=== PATIENT | male | born 1985 ===

== ENCOUNTER 2017-12-12 12:30 | Emergency (ER) | payer SELFPAY ==
--- NOTE | 2017-12-12 14:23 | RAD REPORT ---
EXAM DESCRIPTION: Lumbar Spine 3 Views CLINICAL HISTORY: Radiculopathy COMPARISON: None. FINDINGS: Vertebral body heights appear maintained. No compression fracture noted. Disc spaces are m aintained. No spondylolysis or spondylolisthesis. Small endplate osteophytes along the lower lumbar l evels. IMPRESSION: Minimal lower lumbar spondylosis.
[2017-12-12 14:57] LABS: Potassium 3.9 mEq/L (3.6-5.0)
[2017-12-12 15:03] LABS: Albumin 4.6 g/dL (3.2-5.5); Bilirubin Direct 0.2 mg/dL (0-0.2); Bilirubin Total 1.3 mg/dL (0.3-1.2); Protein, Total 8.3 g/dL (6.0-8.3)
--- NOTE | 2017-12-12 15:25 | RAD REPORT ---
EXAM DESCRIPTION: CT - Abdomen Pelvis W Contrast - 12/12/2017 3:08 pm CLINICAL HISTORY: Abdominal pain with vomiting COMPARISON: none. TECHNIQUE: Computed axial tomography of the abdomen pelvis was obtained. 100 cc Isovue-300 was admin istered intravenously. Oral contrast was not requested which limits evaluation of bowel. All CT scans are performed using dose optimization technique as appropriate and may include automated exposure control or mA/KV adjustment according to patient size. FINDINGS: The liver has a mildly diminished attenuation cyst with fatty infiltration. Spleen, pancreas, adrenal and kidneys appear unremarkable. The appendix is normal. Moderate stranding lies adjacent to the hepatic flexure. Diverticular present within this region. The stranding abuts the inferior aspect of the gallbladder. Small inguinal hernias contain fat. IMPRESSION: Moderate stranding adjacent to the hepatic flexure of the colon. Diverticula are present in this region. This probably represents diverticulitis. Another consideration is since the strandin g abuts the gallbladder is that the patient has gallbladder pathology. If this is the case clinically gallbladder ultrasound would be recommended
[2017-12-12 15:37] LABS: Absolute Lymphocytes (CBC) 1.9 K/uL (0.7-4.9); Absolute Monocytes 0.7 K/uL (0.1-1.3); Absolute Neutrophil 6.3 K/uL (1.8-8.0); Basophils % 0.4 % (0-1.3); Eosinophils % 1.5 % (0-4.4); Hematocrit 45.3 % (39.6-49.0); Lymphocytes % 21.2 % (15.3-44.8); MCH 26.9 pg (27.0-35.0); MCV 80.8 fL (80-100); MPV 8.9 fL (7.6-11.3); RBC Red Blood Cell Count 5.61 M/uL (4.33-5.43)
--- NOTE | 2017-12-12 15:53 | RAD REPORT ---
EXAM DESCRIPTION: US - Abdomen Exam Limited - 12/12/2017 3:43 pm CLINICAL HISTORY: Abdominal pain. Elevated liver enzymes COMPARISON: CT abdomen December 12, 2017 FINDINGS: The gallbladder wall is not thickened. A gallstone is not seen. The biliary tree is normal caliber. The liver has increased echotexture consistent with fatty infiltration IMPRESSION: Unremarkable gallbladder ultrasound. Fatty infiltration of the liver
--- NOTE | 2017-12-12 16:23 | ER ---
Nurse's Notes [facility] Name: William Estevez Age: 32 yrs Sex: Male : 1985 Arrival Date: 12/12/2017 Time: 12:35 Bed 28 Private MD: None, None Diagnosis: Colitis;Diverticulitis of large intestine without perforation or abscess without bleeding Presentation: 12/12 12:58 Presenting complaint: Patient states: "I picked up some heavy stuff on Saturday and then aj1 I started having back pain. The past 2 days its been so bad that I can't sleep." Reports taking Tylenol with no relief. Transition of care: patient was not received from another setting of care. Onset of symptoms was December 06, 2017. Risk Assessment: Do you want to hurt yourself or someone else? Patient reports no desire to harm self or others. Initial Sepsis Screen: Does the patient meet any 2 criteria? HR > 90 bpm. No. Patient's initial sepsis screen is negative. Does the patient have a suspected source of infection? No. Patient's initial sepsis screen is negative. Care prior to arrival: None. 12:58 Method Of Arrival: Ambulatory aj1 12:58 Acuity: RENETTA 4 aj1 Triage Assessment: 13:02 General: Appears uncomfortable, Behavior is cooperative, restless. Pain: Complains of aj1 pain in low back area and mid back area Pain radiates to abdomen Pain currently is 8 out of 10 on a pain scale. Quality of pain is described as stabbing, Pain began 6 days ago Is continuous, Alleviated by nothing. Aggravated by movement. Musculoskeletal: Range of motion: intact in all extremities. Historical: - Allergies: 13:02 No Known Allergies; aj1 - Home Meds: 13:02 None [Active]; aj1 - PMHx: 13:02 None; aj1 - PSHx: 13:02 ear surgery; aj1 - Immunization history:: Flu vaccine is not up to date. - Social history:: Smoking status: Patient/guardian denies using tobacco. - Ebola Screening: : Patient denies travel to an Ebola-affected area in the 21 days before illness onset. - Family history:: not pertinent. - Hospitalizations: : No recent hospitalization is reported. Screenin:41 Abuse screen: Denies threats or abuse. Nutritional screening: No deficits noted. tl3 Tuberculosis screening: No symptoms or risk factors identified. Fall Risk None identified. Assessment: 14:00 General: Appears uncomfortable, well groomed, well developed, well nourished, Behavior tl3 is calm, cooperative, appropriate for age. Pain: Complains of pain in abdomen and back and mid back area and low back area. Neuro: Level of Consciousness is awake, alert, obeys commands, Oriented to person, place, time, situation, Appropriate for age. Cardiovascular: Heart tones S1 S2 present Patient's skin is warm and dry. Respiratory: Airway is patent Respiratory effort is even, unlabored, Respiratory pattern is regular, symmetrical, Breath sounds are clear bilaterally. GI: Abdomen is round. : No signs and/or symptoms were reported regarding the genitourinary system. EENT: No signs and/or symptoms were reported regarding the EENT system. Derm: No signs and/or symptoms reported regarding the dermatologic system. Musculoskeletal: Reports pain in abdomen and back and mid back area and low back area since started Saturday, after pulling carpet in upper back then after a drive to [place] lower back pain started. 15:05 Reassessment: Patient appears in no apparent distress at this time. No changes from tl3 previously documented assessment. Patient and/or family updated on plan of care and expected duration. Pain level reassessed. Patient is alert, oriented x 3, equal unlabored respirations, skin warm/dry/pink. 16:30 Reassessment: Patient appears in no apparent distress at this time. No changes from tl3 previously documented assessment. Patient and/or family updated on plan of care and expected duration. Pain level reassessed. Patient is alert, oriented x 3, equal unlabored respirations, skin warm/dry/pink. Iv infusing without difficulty. 18:22 Reassessment: Patient appears in no apparent distress at this time. No changes from tl3 previously documented assessment. Patient and/or family updated on plan of care and expected duration. Pain level reassessed. Patient is alert, oriented x 3, equal unlabored respirations, skin warm/dry/pink. Vital Signs: 13:04 BP 150 / 95; Pulse 119; Resp 20; Temp 98.2(O); Pulse Ox 100% on R/A; Height 6 ft. 2 in. aj1 (187.96 cm) (R); Pain 8/10; 14:00 BP 141 / 94; Pulse 104; Resp 20; Pulse Ox 100% on R/A; tl3 15:40 BP 141 / 69; Pulse 70; Resp 16; Pulse Ox 98% ; tl3 18:23 BP 150 / 72; Pulse 66; Resp 18; Pulse Ox 100% ; tl3 ED Course: 12:35 Patient arrived in ED. mr 12:35 None, None is Private Physician. mr 13:01 Triage completed. aj1 13:04 Arm band placed on Patient notified of wait time. aj1 13:27 Radiology exam delayed due to test not completed at this time. jb2 13:46 Ivan Wu MD is Attending Physician. rn 13:50 Mare Melo, RILEY is Primary Nurse. tl3 14:04 Patient moved to radiology via wheelchair. jb2 14:10 XRAY Lumbar Spine (3 Views) In Process Unspecified. EDMS 14:36 Initial lab(s) drawn, by nh, sent to lab. Inserted saline lock: 20 gauge in right tl3 antecubital area, using aseptic technique. Blood collected. 15:[address] via wheelchair. mw3 15:08 CT completed. Patient tolerated procedure well. Patient moved back from CT. mw3 15:08 CT Abd/Pelvis - W/Contrast In Process Unspecified. EDMS 15:44 US Abdomen Limited In Process Unspecified. EDMS 16:22 Cameron Pradhan MD is Referral Physician. rn 18:40 No provider procedures requiring assistance completed. IV discontinued, intact, tl3 bleeding controlled, No redness/swelling at site. Pressure dressing applied. 18:41 Patient has correct armband on for positive identification. Placed in gown. Bed in low tl3 position. Call light in reach. Side rails up X 1. Pulse ox on. NIBP on. Administered Medications: 16:41 Drug: Cipro 400 mg Volume: 200 ml; Route: IVPB; Infused Over: 60 mins; Site: right tl3 antecubital; 18:00 Follow up: IV Status: Completed infusion; IV Intake: 100ml tl3 16:41 Drug: Flagyl 500 mg Volume: 100 ml; Route: IVPB; Rate: 200 ml/hr; Infused Over: 30 tl3 mins; Site: right antecubital; 17:00 Follow up: IV Status: Completed infusion; IV Intake: 100ml tl3 Intake: 17:00 IV: 100ml; Total: 100ml. tl3 18:00 IV: 100ml; Total: 200ml. tl3 Outcome: 16:22 Discharge ordered by . rn 18:40 Discharged to home ambulatory. tl3 18:40 Condition: good 18:40 Discharge instructions given to patient, Instructed on discharge instructions, follow up and referral plans. medication usage, Demonstrated understanding of instructions, follow-up care, medications, Prescriptions given X 2, STRESSED IMPORTANCE OF TAKING MEDS DIRECTED, NO etoh WITH fLAGYL 18:42 Patient left the ED. tl3 Signatures: Dispatcher [employer] EDMS Eda Mccann RN RN aj1 Pam Alba mr Edinson Case jb2 Ivan Wu MD MD rn Lowrey, Tammy, RN RN tl3 Fidelia Vincent mw3
--- NOTE | 2017-12-12 16:23 | EDPHYS ---
Physician Documentation [facility] Name: William Estevez Age: 32 yrs Sex: Male : 1985 Arrival Date: 12/12/2017 Time: 12:35 Bed 28 Private MD: None, None ED Physician Ivan Wu HPI: 12/12 14:17 This 32 yrs old Unknown Male presents to ER via Ambulatory with complaints of Back Pain.rn 14:17 The patient presents with pain that is acute. The symptoms are located in the low back. rn Onset: The symptoms/episode began/occurred 6 day(s) ago. The pain does not radiate. Associated signs and symptoms: Pertinent positives: abdominal pain, Pertinent negatives: dysuria, fever, incontinence, numbness, tingling, urinary retention, vomiting, weakness. Severity of symptoms: At their worst the symptoms were mild, in the emergency department the symptoms are unchanged. The patient has not experienced similar symptoms in the past. Report picking up rug/carpet last week, had some lower left back pain, also having left sided abd pain, intermittent, worse with food, no fever, hurts back to move and lift things. . Historical: - Allergies: 13:02 No Known Allergies; aj1 - Home Meds: 13:02 None [Active]; aj1 - PMHx: 13:02 None; aj1 - PSHx: 13:02 ear surgery; aj1 - Immunization history:: Flu vaccine is not up to date. - Social history:: Smoking status: Patient/guardian denies using tobacco. - Ebola Screening: : Patient denies travel to an Ebola-affected area in the 21 days before illness onset. - Family history:: not pertinent. - Hospitalizations: : No recent hospitalization is reported. ROS: 14:17 Constitutional: Negative for fever, chills, and weight loss, Eyes: Negative for injury, rn pain, redness, and discharge, Neck: Negative for injury, pain, and swelling, Cardiovascular: Negative for chest pain, palpitations, and edema, Respiratory: Negative for shortness of breath, cough, wheezing, and pleuritic chest pain, Abdomen/GI: + left sided abd pain, no vomiting/diarrhea Back: + lower back pain MS/Extremity: Negative for injury and deformity, Skin: Negative for injury, rash, and discoloration, Neuro: Negative for headache, weakness, numbness, tingling, and seizure. Exam: 14:17 Constitutional: This is a well developed, well nourished patient who is awake, alert, rn and in no acute distress. Ambulatory without assistance to bed. Head/Face: Normocephalic, atraumatic. Neck: Trachea midline, no thyromegaly or masses palpated, and no cervical lymphadenopathy. Supple, full range of motion without nuchal rigidity, or vertebral point tenderness. No Meningismus. Cardiovascular: Regular rate and rhythm with a normal S1 and S2. No gallops, murmurs, or rubs. Normal PMI, no JVD. No pulse deficits. Respiratory: Lungs have equal breath sounds bilaterally, clear to auscultation and percussion. No rales, rhonchi or wheezes noted. No increased work of breathing, no retractions or nasal flaring. Abdomen/GI: Soft, non-tender, with normal bowel sounds. No distension or tympany. No guarding or rebound. No evidence of tenderness throughout. Back: No spinal tenderness. No costovertebral tenderness. MS/ Extremity: Pulses equal, no cyanosis. Neurovascular intact. Full, normal range of motion. Equal circumference. Neuro: Awake and alert, GCS 15, oriented to person, place, time, and situation. Cranial nerves II-XII grossly intact. Motor strength 5/5 in all extremities. Sensory grossly intact. Cerebellar exam normal. Normal gait. Vital Signs: 13:04 BP 150 / 95; Pulse 119; Resp 20; Temp 98.2(O); Pulse Ox 100% on R/A; Height 6 ft. 2 in. aj1 (187.96 cm) (R); Pain 8/10; 14:00 BP 141 / 94; Pulse 104; Resp 20; Pulse Ox 100% on R/A; tl3 15:40 BP 141 / 69; Pulse 70; Resp 16; Pulse Ox 98% ; tl3 18:23 BP 150 / 72; Pulse 66; Resp 18; Pulse Ox 100% ; tl3 MDM: 13:46 Patient medically screened. rn 16:21 Differential diagnosis: Cholelithiasis sprain, colitis, pancreatitis. Data reviewed: rn vital signs, nurses notes, lab test result(s), radiologic studies, CT scan, ultrasound, and as a result, I will discharge patient. Counseling: I had a detailed discussion with the patient and/or guardian regarding: the historical points, exam findings, and any diagnostic results supporting the discharge/admit diagnosis, lab results, radiology results, the need for outpatient follow up, to return to the emergency department if symptoms worsen or persist or if there are any questions or concerns that arise at home. Response to treatment: the patient's symptoms have mildly improved after treatment, and as a result, I will discharge patient. Special discussion: Based on the patient's Hx, exam, and Dx evaluation, there is no indication for emergent surgery or inpatient Tx. It is understood by the patient/guardian that if the Sx's persist or worsen they need to return immediately for re-evaluation. I discussed with the patient/guardian in detail that at this point there is no indication for admission to the hospital. It is understood, however, that if the symptoms persist or worsen the patient needs to return immediately for re-evaluation. Based on the history and exam findings, there is no indication for further emergent testing or inpatient evaluation. I discussed with the patient/guardian the need to see the weighter for further evaluation of the symptoms. 12/12 14:00 Order name: Basic Metabolic Panel; Complete Time: 15:13 rn 12/12 14:00 Order name: CBC with Diff; Complete Time: 15:59 rn 12/12 14:00 Order name: Creatinine for Radiology; Complete Time: 15:13 rn 12/12 14:00 Order name: Hepatic Function; Complete Time: 15:13 rn 12/12 14:00 Order name: Lipase; Complete Time: 15:13 rn 12/12 14:00 Order name: Urine Microscopic Only rn 12/12 13:07 Order name: XRAY Lumbar Spine (3 Views); Complete Time: 14:42 aj1 12/12 14:00 Order name: IV Saline Lock; Complete Time: 14:36 rn 12/12 14:01 Order name: CT Abd/Pelvis - W/Contrast; Complete Time: 15:59 rn 12/12 15:14 Order name: US Abdomen Limited; Complete Time: 15:59 rn 12/12 16:59 Order name: Urine Dipstick--Ancillary (enter results) bd 12/12 14:00 Order name: Labs collected and sent; Complete Time: 14:36 rn Administered Medications: 16:41 Drug: Cipro 400 mg Volume: 200 ml; Route: IVPB; Infused Over: 60 mins; Site: right tl3 antecubital; 18:00 Follow up: IV Status: Completed infusion; IV Intake: 100ml tl3 16:41 Drug: Flagyl 500 mg Volume: 100 ml; Route: IVPB; Rate: 200 ml/hr; Infused Over: 30 tl3 mins; Site: right antecubital; 17:00 Follow up: IV Status: Completed infusion; IV Intake: 100ml tl3 Disposition: 12/12/17 16:22 Discharged to Home. Impression: Colitis, Diverticulitis of large intestine without perforation or abscess without bleeding. - Condition is Stable. - Discharge Instructions: Diverticulitis. - Prescriptions for Flagyl 500 mg Oral Tablet - take 1 tablet by ORAL route every 8 hours for 10 days; 30 tablet. Tylenol- Codeine #3 300-30 mg Oral Tablet - take 1 tablet by ORAL route every 6 hours As needed; 20 tablet. Cipro 500 mg Oral Tablet - take 1 tablet by ORAL route every 12 hours for 10 days; 20 tablet. - Medication Reconciliation Form, Thank You Letter, Antibiotic Education, Prescription Opioid Use form. - Follow up: Cameron Pradhan MD; When: 1 week; Reason: Recheck today's complaints, Re-evaluation by your physician. - Problem is new. - Symptoms have improved. Signatures: Dispatcher [employer] Eda Kahn RN RN aj1 Ivan Wu MD MD rn Lowrey, Tammy, RN RN tl3 Corrections: (The following items were deleted from the chart) 14:04 14:00 Abdomen Pelvis W Con+CT.RAD.BRZ ordered. [facility] 18:42 16:22 12/12/2017 16:22 Discharged to Home. Impression: Colitis; Diverticulitis of large tl3 intestine without perforation or abscess without bleeding. Condition is Stable. Forms are Medication Reconciliation Form, Thank You Letter, Antibiotic Education, Prescription Opioid Use. Follow up: Cameron Pradhan; When: 1 week; Reason: Recheck today's complaints, Re-evaluation by your physician. Problem is new. Symptoms have improved. rn
[2017-12-12] MEDS ORDERED: METRONIDAZOLE 500mg IVPB 500 MG/100 ML BAG IV ONE (16:37)
[2017-12-12] MEDS ORDERED: CIPROFLOXACIN 400mg IV 400 MG/200 ML BAG IV ONE (16:37)
[2017-12-12 17:17] LABS: Urine Blood TRACE (NEG); Urine Glucose TRACE (NEG); Urine Protein NEGATIVE (NEG); Urine Specific Gravity 1.015 (1.005-1.030); Urine pH 7.5 (5.0-7.0)
[2017-12-12 17:18] LABS: Urine Bacteria <20 /HPF (NONE SEEN); Urine Culture Reflex Order NOT NEEDED; Urine RBC <5 /HPF (NONE SEEN)
== END 2017-12-12 18:42 | disposition home or self-care (01) ==
LOC: ER 12:30
DX: K52.9 Noninfective gastroenteritis and colitis, unspecified (principal); K57.32 Diverticulitis of large intestine without perforation or abscess without bleeding
CPT/HCPCS: 36415; 72100; 74177; 76705; 80048; 80076; 81003; 81015; 83690; 85025; 96365; 96368; 99284; J0744; Q9967